=== PATIENT | female | born 1975 | race Two or more races ===

== ENCOUNTER → 2017-03-22 | Outpatient (CLI) | payer BC ==
--- NOTE | ~2017-03-22 | US128 ---
[id number] [facility] [address]. [place], [place] [address] [id number] O MR#: [id number] Acc #: [id number] NAME: NHUNG REEDER : 1975 SEX: F STUDY DATE/TIME: 03/22/2017 9:03 UNIT: [facility] ROOM: STUDY DESCRIPTION: Thyroid Attending Physician: Mariangel Phillips M.D. Referring Physician: Mariangel Phillips M.D. Ordering Physician: Mariangel Phillips M.D. Primary Care Physician: Mariangel Phillips M.D. MEDICAL IMAGING REPORT This report is preliminary unless electronic signature is present EXAM Thyroid ultrasound 03/22/2017. HISTORY Enlarged thyroid on physical examination 03/17/2017. Chronic sore throat for 10 years. FINDINGS The right thyroid lobe measured 5 cm x 1.3 cm x 1.8 cm, while the left lobe measured 4.4 cm x 1.3 cm x 1.3 cm. The isthmus measured 2 mm in the AP direction. Both thyroid lobes are homogeneous in echotexture and demonstrate no cystic or solid mass lesions. There are no masses extrinsic to the thyroid. Normal blood flow is seen throughout both thyroid lobes. IMPRESSION Normal thyroid ultrasound. Dictated by... Noman Matos M.D. THIS IS AN ELECTRONICALLY VERIFIED REPORT Noman Matos M.D. at 03/23/2017 7:28 AM NANI/carlos TD: 03/22/2017 10:48 JOB #: [id number] MEDICAL IMAGING REPORT Page 1 of 1 COPY
== END | disposition home or self-care (01) ==
LOC: CWCC 08:51
DX: E01.0 Iodine-deficiency related diffuse (endemic) goiter (principal)
CPT/HCPCS: 76536